=== PATIENT | female | born 1985 | race Hispanic/Latino ===

== ENCOUNTER 2017-02-18 06:51 | Outpatient (CLI) | payer OTHER ==
[2017-02-18 07:15] LABS: Hemoglobin A1c 5.5 % (4.0-6.0)
[2017-02-18 18:16] LABS: Folate (Folic Acid) 12.3 ng/mL (7.0-31.4)
== END 2017-02-18 06:52 ==
LOC: NAV LAB 06:51
PROVIDERS: ATTEND Family Medicine
DX: R73.9 Hyperglycemia, unspecified (principal); R79.89 Other specified abnormal findings of blood chemistry
CPT/HCPCS: 82607; 82746; 83036; 83525

== ENCOUNTER 2022-10-21 14:51 | Emergency (ER) | payer SELFPAY | END 2022-10-21 15:25 | disposition home or self-care (01) | LOC: NAV ERS 14:51 | DX: R10.12 Left upper quadrant pain (principal); I10 Essential (primary) hypertension; F17.210 Nicotine dependence, cigarettes, uncomplicated | CPT/HCPCS: 99283 ==

== ENCOUNTER 2023-06-09 02:43 | Emergency (ER) | payer SELFPAY ==
[2023-06-09] MEDS ORDERED: Acetaminophen 325 MG TAB ONE (03:55)
== END 2023-06-09 06:55 | disposition home or self-care (01) ==
LOC: NAV ERS 02:43
DX: S39.012A Strain of muscle, fascia and tendon of lower back, initial encounter (principal); S63.611A Unspecified sprain of left index finger, initial encounter; M48.061 Spinal stenosis, lumbar region without neurogenic claudication; Y04.2XXA Assault by strike against or bumped into by another person, initial encounter; Z79.899 Other long term (current) drug therapy
CPT/HCPCS: 72131

== ENCOUNTER 2023-06-21 09:30 | Emergency (ER) | payer SELFPAY ==
[2023-06-21] MEDS ORDERED: Ketorolac Tromethamine 60 MG/2 ML VIAL ONE (09:55)
== END 2023-06-21 11:07 | disposition home or self-care (01) ==
LOC: NAV ERS 09:30
DX: S23.41XA Sprain of ribs, initial encounter (principal); F17.200 Nicotine dependence, unspecified, uncomplicated; Y04.0XXA Assault by unarmed brawl or fight, initial encounter
CPT/HCPCS: 96372; J1885

== ENCOUNTER 2023-07-29 16:01 | Emergency (ER) | payer SELFPAY ==
[2023-07-29] MEDS ORDERED: Tetracaine 0.5% PF 4 ML BOT ONE (16:14)
[2023-07-29] MEDS ORDERED: Fluorescein Opthalmic Strip ONE (16:14)
== END 2023-07-29 16:45 | disposition home or self-care (01) ==
LOC: NAV ERS 16:01
DX: H00.024 Hordeolum internum left upper eyelid (principal)
CPT/HCPCS: 99283